=== PATIENT | female | born 1995 | race Caucasian/White ===

== ENCOUNTER 2022-11-06 11:17 | Emergency (ER) | payer OTHER, SELFPAY ==
--- NOTE | ~2022-11-06 | XR_ITS ---
EXAMINATION: Bilateral ankle. CLINICAL INDICATION: Pain. TECHNIQUE: 3 views each ankle. FINDINGS: RIGHT ANKLE: There is no visible fracture, dislocation or subluxation. There is minimal lateral soft tissue swelling. The ankle mortise and subtalar joints are normal. The soft tissues are normal. LEFT ANKLE: There is mild lateral malleolar soft tissue swelling. The ankle mortise and subtalar joints are normal. There is no visible acute fracture, dislocation or subluxation seen. XR/XR ankle LT min 3V IMPRESSION: Mild bilateral lateral malleolar soft tissue swelling without underlying fracture or dislocation.
--- NOTE | ~2022-11-06 | XR_ITS ---
EXAMINATION: Bilateral ankle. CLINICAL INDICATION: Pain. TECHNIQUE: 3 views each ankle. FINDINGS: RIGHT ANKLE: There is no visible fracture, dislocation or subluxation. There is minimal lateral soft tissue swelling. The ankle mortise and subtalar joints are normal. The soft tissues are normal. LEFT ANKLE: There is mild lateral malleolar soft tissue swelling. The ankle mortise and subtalar joints are normal. There is no visible acute fracture, dislocation or subluxation seen. XR/XR ankle RT min 3V IMPRESSION: Mild bilateral lateral malleolar soft tissue swelling without underlying fracture or dislocation.
[2022-11-06 11:27] VITALS: BP 154/100; PULSE 97; RESP 18; TEMP 36.5; O2SAT 97; BMI 40.3
--- NOTE | 2022-11-06 11:27 | ED.LOWEXIN ---
HPI - Extremity Injury (Lower) General Chief Complaint: Extremity Injury, Lower Stated Complaint: R ankle inj/L ankle pain after fall Time Seen by Provider: 11/06/22 12:37 Source: patient Mode of arrival: ambulatory Limitations: no limitations History of Present Illness HPI Narrative: 27 yo female presents to the ER for evaluation of bilateral ankle pain s/p injury 2 days ago. Patient was on a cruise when she accidentally missed the bottom 2 steps and twisted both of her ankles, right worse than left. She has been able to walk on the ankles but with pain and a limp. She reports swelling and bruising to the right lateral ankle. No other injuries. complaint: ankle injury Onset (ago): day(s) (2) Type of Injury: inversion Place: other (cruise ship) Severity: moderate Severity scale (1-10): 7 Relieving factors: immobilization and rest Exacerbating factors: weight bearing Context: fall Associated symptoms: swelling and able to partially bear weight Other symptoms: none Treatments prior to arrival: bandage Related Data Previous Rx's Medication Instructions Recorded ibuprofen 600 mg tablet 600 mg PO Q8H PRN pain #14 tabs 11/06/22 Allergies Allergy/AdvReac Type Severity Reaction Status Date / Time No Known Allergies Allergy Verified 11/06/22 11:27 Review of Systems Review of Systems: Yes all other systems are reviewed and are negative [facility] Social History Social History Advance Directives: No Advance Directives Information Provided: No Physical Exam Vital Signs: Vital Signs: Last Vital Signs Temp 97.7 F 11/06/22 11:27 Pulse 97 11/06/22 11:27 Resp 18 11/06/22 11:27 BP 154/100 H 11/06/22 11:27 Pulse Ox 97 11/06/22 11:27 O2 Del Method Room Air 11/06/22 11:27 BMI result Body Mass Index 40.3 Appearance: Alert. Oriented X3. No acute distress. HEENT: normal inspection CVS: Normal heart rate and rhythm. Pulses normal. Respiratory: No respiratory distress. Skin: Skin warm and dry. Normal skin color. Normal skin turgor. No rashes. Extremities: right lateral ankle with mild generalized swelling, mild dependent bruising, pain with dorsiflexion and plantarflexion. normal ROM. left ankle with minimal swelling normal ROM Neuro: Oriented X 3. No motor deficit. No sensory deficit. antalgic gait Course Course Course Narrative: RME - 27 yo female presents to the ER for evaluation of bilateral ankle pain, right >left after she [place] 2 [place] 2 [place]. Has been ambulating with 7/10 pain. No other injuries Plan: x-rays bilateral ankles Medical Decision Making Medical Decision Making MDM Narrative: 27 yo female presents to the ER for evaluation of right > left ankle pain and swelling s/p twisting injury and fall down 2 stairs 2 days ago. ambulatory. xr without fracture. counseled on sprains and RICE therapy. declining crutches. 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 stable for dc home Differential Diagnosis Differential Diagnoses: The differential diagnosis associated with the presentation includes ankle sprain, ankle contusion, ankle fracture Independent Interpretation I performed an independent interpretation of an: Plain X-Ray Interpretation: no appreciated fractures, agree w/ radiology read Radiology Impression Discussion of test interpretation with radiology: I have reviewed the radiologist's reading. Radiologist Impression: cc: Lyssa Pepe~ EXAMINATION: Bilateral ankle. CLINICAL INDICATION: Pain. TECHNIQUE: 3 views each ankle. FINDINGS: RIGHT ANKLE: There is no visible fracture, dislocation or subluxation. There is minimal lateral soft tissue swelling. The ankle mortise and subtalar joints are normal. The soft tissues are normal. LEFT ANKLE: There is mild lateral malleolar soft tissue swelling. The ankle mortise and subtalar joints are normal. There is no visible acute fracture, dislocation or subluxation seen. XR/XR ankle RT min 3V IMPRESSION: Mild bilateral lateral malleolar soft tissue swelling without underlying fracture or dislocation. Independent Historian Clinical information obtained from an independent historian. History obtained from or confirmed by: Friend Prescription Management I considered prescription management with: Pain Medication Chronic Conditions Patient?s care impacted by: Other (obesity) Critical Care Time Critical Care Time Critical Care Time: No Discharge Plan Discharge Clinical Impression: Ankle sprain and strain Patient Disposition: Home, Self-Care Instructions: Ankle Sprain (DC) Additional Instructions: Your x-rays today did not show any acute fractures. Rest your ankle and elevate your foot when possible. Recommend AJIT wrap for support and compression. Use ice several times per day for the next 48 hours. You may bear weight as tolerated. If pain is too severe, use crutches until better. Take Motrin and/or Tylenol as needed for pain. Follow up with your doctor as needed. Prescriptions: New ibuprofen 600 mg tablet 600 mg PO Q8H PRN (Reason: pain) Qty: 14 0RF Stand Alone Forms: Work/School Release Interventions: ED Discharge Assessment Last Done: 11/06/22 13:03 Discharge Date/Time: 11/06/22 13:03
--- NOTE | 2022-11-06 13:01 | PC.NURSE ---
chelle wraps applied to bilateral ankles, pt tolerated well and reported improvement in pain/stabilization, pt declined crutches - reported that she already has some at home. ambulated independently with a steady gait out of the ED.
== END 2022-11-06 13:03 | disposition home or self-care (01) ==
LOC: HO.ED 12:53
PROVIDERS: Emergency Provider Emergency Medicine; PCP Physician Assistant
DX: S93.492A Sprain of other ligament of left ankle, initial encounter (principal); S96.812A Strain of other specified muscles and tendons at ankle and foot level, left foot, initial encounter; S93.491A Sprain of other ligament of right ankle, initial encounter; S96.811A Strain of other specified muscles and tendons at ankle and foot level, right foot, initial encounter; W10.8XXA Fall (on) (from) other stairs and steps, initial encounter; E66.9 Obesity, unspecified; Z68.41 Body mass index [BMI] 40.0-44.9, adult; Y93.89 Activity, other specified; Y92.814 Boat as the place of occurrence of the external cause; Y99.8 Other external cause status
CPT/HCPCS: 73610; 99283